=== PATIENT | female | born 1965 | race Caucasian/White ===

== ENCOUNTER → 2018-01-13 17:21 | Outpatient (CLI) | payer MEDICAID | END | disposition home or self-care (01) | LOC: D.MAMMO 09:15 | DX: Z12.31 Encounter for screening mammogram for malignant neoplasm of breast (principal) ==

== ENCOUNTER 2018-03-05 08:35 | Emergency (ER) | payer MEDICAID ==
[2018-03-05 10:08] LABS: BASOPHILS 0.1 % (0-2); EOSINOPHILS 0.3 % (0-7); HEMATOCRIT 43.7 % (36.0-48.0); HEMOGLOBIN 14.1 g/dL (12-16); IMMATURE GRANULOCYTES 0.3 % (0-5); LYMPHOCYTES 8.7 % (15-50); MCH 30.2 pg (26.0-34.0); MCHC 32.3 g/dL (31.0-37.0); MCV 93.6 fL (80.0-100.0); MEAN PLATELET VOLUME 10.8 fL (7.4-10.4); MONOCYTES 7.7 % (2-11); NEUTROPHILS 82.9 % (40-80); PLATELET COUNT 242 10x3/uL (130-400); RBC 4.67 10x6/uL (4.00-5.40); RDW 14.8 % (11.5-14.5); WBC 14.9 10x3/uL (4.8-10.8)
== END 2018-03-05 11:08 | disposition home or self-care (01) ==
LOC: D.ER 08:35
PROVIDERS: Emergency Medicine
DX: S29.9XXA Unspecified injury of thorax, initial encounter (principal); V43.52XA Car driver injured in collision with other type car in traffic accident, initial encounter; Y93.89 Activity, other specified; Y92.410 Unspecified street and highway as the place of occurrence of the external cause; S81.812A Laceration without foreign body, left lower leg, initial encounter; I10 Essential (primary) hypertension; F17.200 Nicotine dependence, unspecified, uncomplicated

== ENCOUNTER → 2018-03-30 16:54 | Outpatient (CLI) | payer MEDICAID | END | disposition home or self-care (01) | LOC: D.MAMMO 03-09 10:00 | DX: R92.8 Other abnormal and inconclusive findings on diagnostic imaging of breast (principal) ==

== ENCOUNTER → 2019-06-27 10:41 | Outpatient (CLI) | payer MEDICAID ==
[~2019-06-27 10:41] MED LIST: ASPIRIN81 MG PO; BUSPAR 15 MG TA15 MG PO; COZAAR100 MG PO; CYCLOBENZAPRINE5 MG PO; HYDRALAZINE HCL50 MG PO; HYDROCHLOROTHIA25 MG PO; NORVASC10 MG PO; OMEPRAZOLE20 M1 PO; OXYBUTYNIN CHLOR5 MG PO; SYNTHROID25 MCG PO; TOPROL XL100 MG PO
[2019-07-05 15:16] VITALS: BMI 41.0
== END | disposition home or self-care (01) ==
LOC: D.HCCARDIO 10:30
PROVIDERS: ATTEND Internal Medicine Cardiovascular Disease
DX: I25.10 Atherosclerotic heart disease of native coronary artery without angina pectoris (principal)

== ENCOUNTER 2019-07-04 13:10 | Inpatient (IN) | payer MEDICAID ==
[~2019-07-04] VITALS: Ht 162.6 cm; Wt 108.5 kg
--- NOTE | ~2019-07-04 | HEMODYNAMI ---
PATIENT:TITO MORENO MEDICAL RECORD: [id number] : 63 LOCATION:[facility] D.2114 ADMISSION DATE: 07/04/19 Generatedon:07/05/201910:08 Patient name: TITO MORENO Patient #: [id number] : 1965 Date of study: 07/05/2019 Page: Of Hemodynamic Procedure Report Patient Data Patient Demographics Procedure consent was obtained First Name: TITO Gender: Female Last Name: TIFFANIE : 1965 Patient #: [id number] Age: 53 year(s) Race: SSN: [id number] Additional ID: [id number] Contact details Address: [address] [place] [address] State: [place] City: [place] Zip code: [address] Admission Admission Data Admission Date: 07/04/2019 Admission Time: 18:33 Arrival Date: 07/04/2019 Arrival Time: 18:33 Admit Source: Emergency Insurance Payor: Private department health insurance Room #: D.2114 [facility] #: [id number] Weight (lbs.): 248 Weight (kg.): 112.49 Current Diagnosis Diagnosis Description NSTEMI Lab Results Lab Result Date: 07/05/2019 Lab Result Time: 0:00 Biochemistry Name Units Result Min Max BUN mg/dl 26 --(----)-* 7 18 Creatinine mg/dl 1.2 --(---*)-- 0.6 1.3 CBC Name Units Result Min Max Hemoglobin g/dl 11.5 *-(----)-- 13.5 17.5 Procedure Procedure Types Cath Procedure Diagnostic Procedure LHC LHC w/Coronaries Procedure Description Procedure Date Procedure Date: 07/05/2019 Procedure Start Time: 9:45 Procedure End Time: 10:06 Procedure Staff Name Function Asif Montana MD Performing Physician Iam Henderson RT Monitor Brooklyn Wagner RN Nurse Leela Mcmahon RT Scrub Procedure Data Cath Procedure Fluoroscopy Diagnostic fluoroscopy Total fluoroscopy Time: 4.1 time: 4.1 min min Diagnostic fluoroscopy Total fluoroscopy dose: dose: 1162 mGy 1162 mGy Contrast Material Contrast Material Type Amount (ml) Isovue 300 106 Entry Location Entry Primary Successful Side Size Upsize Upsize Entry Closure Fitzgerald ccessful Closure Location (Fr) 1 (Fr) 2 (Fr) Remarks Device Remarks Radial Right 5 Fr Mechanical artery Compression Estimated blood loss: 10 ml Diagnostic catheters Device Type Used For End Catheter Placement DIAGNOSTIC [place] 110cm 5 Procedure Fr catheter ([id number]) DIAGNOSTIC Pigtail 5Fr Procedure catheter ([id number]) Procedure Medications Medication Administration Route Dosage 0.9% NaCl I.V. 100 ml/hr Oxygen 4 l/min Lidocaine 2% added to field 20 Heparin Flush Bag added to field 2 bags (1000units/500ml NS) Radial Cocktail added to field 1 syringe (Verapamil 2mg/Nitro 400mcg/Heparin 1500units) Versed I.V. 2 mg Fentanyl I.V. 25 mcg Hemodynamics Rest HGB: 11.5 (g/dl) Heart Rate: 62 (bpm) Pressure Samples Time Site Value (mmHg) Purpose Heart Use Rate(bpm) 9:50 LV 110/10,9 Snapshot 43 9:50 LV 132/-1,21 EDP 60 9:51 AO 143/89(113) Pullback 58 9:51 LV 141/7,28 Pullback 58 Gradients Valve Time Site 1 Site 2 Mean SEP/DFP Peak To Heart Use (mmHg) (sec/min) Peak Rate (mmHg) (bpm) Aortic 9:51 LV AO 0 12 0 58 141/7,28 143/89(113) Calculations Valve P-P Mean Valve Index Valve Source Name Gradient Area Flow (cm2) Aortic 0 0 0 0 Snapshots Pre Cath Intra NCS Post Cath Vital Signs Time Heart Resp SPO2 etCO2 NIBP (mmHg) Rhythm Pain Sedation Rate (ipm) (%) (mmHg) Status Level (bpm) 9:24:12 62 34 93 15.7 Measuring NSR 0 (11) 10(A) , No pain 9:24:14 62 34 93 15 166/122(140) NSR 0 (11) 10(A) , No pain 9:29:13 61 38 97 21 Measuring NSR 0 (11) 10(A) , No pain 9:34:22 60 41 93 16.5 155/115(137) NSR 0 (11) 10(A) , No pain 9:39:01 59 35 93 19.5 173/91(153) SB 0 (11) 9(A) , No pain 9:44:00 60 29 92 12 Measuring NSR 0 (11) 9(A) , No pain 9:45:13 61 28 94 11.2 162/99(136) NSR 0 (11) 9(A) , No pain 9:49:54 59 36 92 13.5 162/119(143) SB 0 (11) 9(A) , No pain 9:54:31 54 30 94 14.2 151/92(126) SB 0 (11) 9(A) , No pain 9:59:03 55 27 93 15 143/104(129) SB 0 (11) 9(A) , No pain 10:03:33 55 29 94 26.2 153/104(135) SB 0 (11) 10(A) , No pain Medications Time Medication Route Dose Verified Delivered Reason Notes Eff ectiveness by by 9:23:48 0.9% NaCl I.V. 100 Asif Brooklyn used for ml/hr Rubén Wagner pt sitter 9:24:00 Oxygen Simple 4 l/min Asif Brooklyn used for Mask Rubén Wagner pt sitter 9:24:06 Lidocaine 2% added 20ml Asif Asif for local to vial Rubén Montana MD anesthetic field 9:24:11 Heparin Flush added 2 bags Asif Asif used for Bag to Rubén Montana MD procedure (1000units/500ml field NS) 9:24:19 Radial Cocktail added 1 Asif Asif used for (Verapamil to syringe Rubén Montana MD procedure 2mg/Nitro field 400mcg/Heparin 1500units) 9:36:18 Versed I.V. 2 mg Asif Brooklyn for Rubén Wagner sedation RN 9:36:27 Fentanyl I.V. 25 mcg Asif Brooklyn for Rubén Wagner sedation iron worker apprentice Log Time Note 8:58:33 Diagnostic Cath Status : Elective 8:58:51 Iam Henderson RT(R) (CV) sent for patient. Start room use. 8:58:54 Time tracking: Regular hours (M-F 7:00 - 5:00) 8:59:00 Plan of Care:Hemodynamics will remain stable., Cardiac rhythm will remain stable., Comfort level will be maintained., Respiratory function will remain adequate., Patient/ family verbilizes understanding of procedure., Procedure tolerated without complication., Recovers from procedure without complications.. 8:59:20 3a) 45-59 Moderately reduced kidney function. 8:59:46 Maximum allowable contrast dose (3.7 X eGFR X 0.75)138.75 ml. 9:08:04 ACC Patient presents with Unstable Angina CCS Anginal Class 2--Slight limitation of ordinary activity. 9:08:12 Procedure Status Urgent Heart Cath (IP). 9:08:33 Admit Source: Emergency department 9:09:56 Arrival Date: 07/04/2019 6:33:00 PM 9:10:16 Insurance Payor : Private health insurance 9:14:31 Patient received from Med II to CCL 1 Alert and oriented. Tansferred to table in Supine position. 9:19:27 Lab Result : BUN 26 mg/dl 9:19:27 Lab Result : Hemoglobin 11.5 g/dl 9:19:27 Lab Result : Creatinine 1.2 mg/dl 9:20:47 ----Pre-sedation anethsthesia assessment.---- 9:20:50 Previous problem with sedation/anesthesia? No ? 9:20:51 Sleep apnea? Yes 9:20:52 Deviated septum? Yes 9:20:53 Opens mouth fully? Yes 9:20:55 Sticks out tongue? Yes 9:21:46 Airway obstruction? No ? 9:21:50 Dentures? No ? 9:21:54 Modified Dimas's test Ulnar < 7 seconds 9:22:02 Patient pain scale 0/10 ?. 9:22:10 IV patent on arrival in left hand with 0.9% NaCl at KVO. 9:22:18 Signed procedure consent form obtained from patient. 9:22:20 Warm blankets applied, and jessica hugger turned on for patient comfort. 9:22:21 Correct patient and procedure confirmed by team. 9:22:21 ECG and BP/O2 sat monitors applied to patient. 9:22:22 Vital chart was started 9:23:23 Baseline sample Acquired. 9:23:29 Rhythm: sinus rhythm 9:23:30 Full Disclosure recording started 9:23:38 H&P Date Dictated: 07/04/2019 Within 30 days and on chart.. 9:23:43 Pre-procedure instructions explained to patient. 9:23:43 Pre-op teaching completed and patient verbalized understanding. 9:23:48 0.9% NaCl 100 ml/hr I.V. was administered by Brooklyn Wagner RN; used for procedure; 9:23:57 Family unavailable. 9:24:00 Oxygen 4 l/min Simple Mask was administered by Brooklyn Wagner RN; used for procedure; 9:24:00 Patient NPO since Midnight. 9:24:06 Lidocaine 2% 20ml vial added to field was administered by Asif Montana MD; for local anesthetic; 9:24:11 Heparin Flush Bag (1000units/500ml NS) 2 bags added to field was administered by Asif Montana MD; used for procedure; 9:24:19 Radial Cocktail (Verapamil 2mg/Nitro 400mcg/Heparin 1500units) 1 syringe added to field was administered by Asif Montana MD; used for procedure; 9:24:51 ALLERGY: ACETAMENOPHEN, BENADRYL, LATEX, IODINE 9:29:07 Baseline sample Acquired. 9:29:32 Patient diabetic? No. 9:29:44 Lab results completed and on chart. 9:29:49 Right Radial & Right Groin area was prepped with chlora-prep and draped in sterile fashion 9:29:50 Alarms reviewed by R. N. 9:29:51 Sharps counted by scrub and verified by R.N. 9:34:09 Pt arrives to CL w/ SOB and dyspnea on exertion. Pt placed on 4L O2 via simple mask. Still complains of SOB. MD notified w/ no new orders. given. All other VSS, will continue to monitor. 9:34:18 Use device set Radial Dx or PCI 9:34:20 ACIST Syringe (65750) opened to sterile field. 9:34:21 Medline Cath Pack ([id number]) opened to sterile field. 9:34:21 Bag Decanter (2002) opened to sterile field. 9:34:22 ACIST Hand Control (65097) opened to sterile field. 9:34:23 ACIST Manifold (70046) opened to sterile field. 9:34:23 Tegaderm 4 x 4 (1626W) opened to sterile field. 9:34:24 MBrace Wrist Support ([id number]) opened to sterile field. 9:34:25 NEEDLE Cook 21G 4cm Radial (C80678) opened to sterile field. 9:34:27 EMERALD Guide Wire (502-691) opened to sterile field. 9:34:29 SHEATH 6FR RAIN (6990104) opened to sterile field. 9:35:43 Physician arrived 9::44 --------ALL STOP TIME OUT------ 9:35:44 Final Timeout: patient, procedure, and site verified with staff and physician. All members of the team are in agreement. 9:35:48 Right Radial & Right Groin site verified by team. 9:35:52 Fire Safety Assessment: A--An alcohol-based skin anteseptic being used preoperatively., C--Open oxygen or nitrous oxide is being used., D--An ESU, laser, or fiber-optic light is being used. 9:36:01 Physical assessment completed. ASA score P 2 - A patient with mild systemic disease as per Asif Montana MD. 9:36:07 Sedation plan: IV Moderate Sedation Medication:Versed, Fentanyl 9:36:18 Versed 2 mg I.V. was administered by Brooklyn Wagner RN; for sedation; 9:36:27 Fentanyl 25 mcg I.V. was administered by Brooklyn Wagner RN; for sedation; 9:37:10 Maximum allowable contrast dose (3.7 X eGFR X 0.75)138.75 ml. 9:40:38 Zero performed for pressure channel P1 9:40:48 Zero performed for pressure channel P1 9:40:54 Zero performed for pressure channel P1 9:45:02 Procedure started. 9:45:08 Local anesthetic to right radial artery with Lidocaine 2% by Asif Montana MD.INITIAL ACCESS ONLY 9:48:44 A 5 Fr sheath was inserted into the Right Radial artery 9:50:08 A DIAGNOSTIC [place] 110cm 5 Fr catheter (615016) was advanced over the wire and used for Procedure. 9:50:57 LV hemodynamics recorded. 9:50:59 LV gram done using BROOKS 9:51:17 EF : 25 % 9:52:08 LCA angiography performed. 9:54:43 RCA angiography performed. 9:55:24 Catheter removed. 9:55:40 A DIAGNOSTIC Pigtail 5Fr catheter ([id number]) was advanced over the wire and used for Procedure. 9:58:37 LV gram done using BROOKS 9:58:48 Injector settings: Ml/sec: 10, Volume: 20, 9:59:46 Catheter removed. 10:02:09 TR BAND Standard ([id number]) opened to sterile field. 10:02:24 Sheath removed intact; hemostasis achieved with Mechanical Compression to the Right Radial artery. 10:02:29 Procedure ended.(Physican Out) 10:02:44 Fluoroscopy time 04.10 minutes. 10:02:55 Fluoroscopy dose: 1162 mGy 10:02:55 Flurop Dose total: 1162 10:03:21 Dose Area Product 79003 mGy/cm. 10:03:30 Contrast amount:Isovue 300 106ml. 10:03:34 Maximum allowable dose exceeded? No. 10:03:35 Sharps counted by scrub and verified by R.N. 10:03:42 Procedure and supply charges have been captured, reviewed, submitted and are correct. 10:05:48 TR band inflated with 10cc of air. 10:05:51 Insertion/operative site no bleeding no hematoma. 10:06:06 Post right radial artery:stable 10:06:12 Post-procedure physical assessment completed. ASA score P 2 - A patient with mild systemic disease as per Asif Montana MD. 10:06:26 Post procedure rhythm: sinus bradycardia 10:06:33 Estimated blood loss: 10 ml 10:06:36 Patient needs reinforcement of post procedure teaching. 10:06:43 Vital chart was stopped 10:06:44 See physician's report for complete and final results. 10:06:46 Report given to Med II. 10:06:53 Patient transfered to Med II with Bed. 10:06:56 Procedure ended. 10:06:56 Full Disclosure recording stopped 10:07:06 End room use (Document Last) 10:07:28 Patient Weight : 248 lbs 10:07:40 Current Diagnosis : NSTEMI Device Usage Item Name Manufacture Quantity Catalog Hospital Part Current Minima l Lot# / Number Charge Number Stock Stock Serial# Code ACIST Acist 1 85987 189919 497174 015628 20 PolyActiva75074) Systems Inc Medline Medline 1 [id number] 342647 63489 978928 5 Cath Pack ([id number]) Bag Microtek 1 2001S 049214 46173 155915 5 Decanter Medical Inc. (2001S) ACIST Hand Acist 1 98112 901433 652665 297936 5 Control Medical (67603) Systems Inc ACIST Acist 1 44230 338282 505850 770898 5 Manifold Medical (23242) Systems Inc Tegaderm 4 3M 1 1626W 160840 358226 428980 5 x 4 (1626W) MBrace Advanced 1 140-0250-00 358240 00607 582573 5 Wrist Vascular Support Dynamics ([id number]) NEEDLE Cook Cook Medical 1 O71592 600453 673217 028556 5 21G 4cm Radial (O07812) EMERALD Cardinal 1 433-521 158955 712043 804021 5 Guide Wire Health (022-518) SHEATH 6FR Cardinal 1 6045845 453071 8290808 045341 5 [facility] (8845809) DIAGNOSTIC Terumo 1 405013 020541 919238 663016 5 [place] 110cm 5 Fr catheter (936800) DIAGNOSTIC Cardinal 1 [id number] 126502 449404 950557 5 Pigtail 5Fr Health catheter (914756T) TR BAND Terumo 1 [id number] 483398 819678 658657 40 Standard ([id number]) Signature Audit [place] Stage Time Signature Unsigned Intra-Procedure 07/05/2019 Iam Henderson 10:08:15 AM RT(R) (CV) Signatures Performing Physician : Signature : Asif Montana MD Date : Time : Monitor : Iam Henderson RT Signature : Date : Time : Nurse : Brooklyn Wagner RN Signature : Date : Time : [address] [place] [address]
[2019-07-04] MEDS ORDERED: SYNTHROID25 MCG PO (13:16)
[2019-07-04] MEDS ORDERED: OMEPRAZOLE20 M1 PO (13:17)
[2019-07-04] MEDS ORDERED: ASPIRIN81 MG PO (13:17)
[2019-07-04] MEDS ORDERED: TOPROL XL100 MG PO (13:17)
[2019-07-04] MEDS ORDERED: HYDROCHLOROTHIA25 MG PO (13:18)
[2019-07-04 13:34] LABS: BASOPHILS 0.3 % (0-2); EOSINOPHILS 0.1 % (0-7); HEMATOCRIT 35.8 % (36.0-48.0); HEMOGLOBIN 11.5 g/dL (12-16); IMMATURE GRANULOCYTES 0.1 % (0-5); LYMPHOCYTES 29.1 % (15-50); MCH 30.1 pg (26.0-34.0); MCHC 32.1 g/dL (31.0-37.0); MCV 93.7 fL (80.0-100.0); MEAN PLATELET VOLUME 10.4 fL (7.4-10.4); MONOCYTES 7.4 % (2-11); PLATELET COUNT 263 10x3/uL (130-400); RBC 3.82 10x6/uL (4.00-5.40); WBC 7.3 10x3/uL (4.8-10.8)
[2019-07-04 13:38] VITALS: BP 128/92
[2019-07-04 13:50] LABS: ALBUMIN 3.1 g/dL (3.4-5.0); ALKALINE PHOSPHATASE 79 U/L (46-116); ALT (SGPT) 448 U/L (10-68); BILIRUBIN - TOTAL 2.09 mg/dL (0.2-1.3); CALC OSMOLALITY 287 mosm/kg (275-300); CALCIUM 8.8 mg/dL (8.5-10.1); CARBON DIOXIDE 23.7 mmol/L (21.0-32.0); CHLORIDE - SERUM 107 mmol/L (98-107); CREATININE - SERUM 1.2 mg/dL (0.6-1.3); GLUCOSE 105 mg/dL (74-106); POTASSIUM - SERUM 3.9 mmol/L (3.5-5.1); PROTEIN - SERUM 7.5 g/dL (6.4-8.2); SODIUM 142 mmol/L (136-145); UREA NITROGEN 26 mg/dL (7-18); eGFR NON AFRICAN AMERICAN 50 mL/min (90-120)
[2019-07-04 14:01] VITALS: BP 193/91
[2019-07-04 14:06] LABS: CKMB 2.1 U/L (0.0-3.6); CREATINE KINASE 99 UL (21-215); PRO BNP 24233 pg/mL (0-125)
[2019-07-04 14:08] LABS: TROPONIN-I 0.155 ng/mL (0.000-0.060)
[2019-07-04 14:18] VITALS: BP 173/122; BP 182/114
[2019-07-04 15:01] VITALS: BP 137/107
[2019-07-04 16:39] LABS: THYROID STIMULATING HORMONE 4.78 uIU/mL (0.36-3.74)
[2019-07-04 20:00] VITALS: BP 149/48
[2019-07-04] MEDS ORDERED: BUSPAR 15 MG TA15 MG PO (20:12)
[2019-07-04] MEDS ORDERED: OXYBUTYNIN CHLOR5 MG PO (20:12)
[2019-07-04] MEDS ORDERED: NORVASC10 MG PO (20:13)
[2019-07-04] MEDS ORDERED: COZAAR100 MG PO (20:13)
[2019-07-04] MEDS ORDERED: CYCLOBENZAPRINE5 MG PO ×2 (20:15→20:16)
[2019-07-04] MEDS ORDERED: HYDRALAZINE HCL50 MG PO (20:19)
[2019-07-04 21:08] LABS: CKMB 1.9 U/L (0.0-3.6); CREATINE KINASE 98 UL (21-215)
[2019-07-04 21:09] LABS: TROPONIN-I 0.138 ng/mL (0.000-0.060)
[2019-07-04 23:40] VITALS: BP 149/48; BMI 42.6
--- NOTE | 2019-07-04 23:47 | NUR ---
RECIEVED REPORT FROM DAYNA RN IN ER AT 1900. ARRIVED TO FLOOR AT 192 IN W/C. ALERT AND ORIENTED X4. UP AD JOSETET TO B/R. IV TO LEFT HAND SL. DENIES ANY NEEDS AT THIS TIME.
[2019-07-05 00:10] VITALS: BP 151/87
[2019-07-05 01:52] LABS: CKMB 1.8 U/L (0.0-3.6); CREATINE KINASE 95 UL (21-215)
[2019-07-05 01:53] LABS: TROPONIN-I 0.117 ng/mL (0.000-0.060)
[2019-07-05 04:00] VITALS: BP 158/88
[2019-07-05 06:57] LABS: CHOL - HDL RATIO 7.2 ratio (2.3-4.1); CHOLESTEROL, TOTAL 122 mg/dL (0-200); CKMB 1.8 U/L (0.0-3.6); CREATINE KINASE 92 UL (21-215); HDL CHOLESTEROL 17 mg/dL (32-96); LDL CHOLESTEROL 86 mg/dL (0-100); LDL-HDL RATIO 5.1 ratio (1.5-3.5); TRIGLYCERIDE 96 mg/dL (30-200)
[2019-07-05 06:58] LABS: TROPONIN-I 0.109 ng/mL (0.000-0.060)
--- NOTE | 2019-07-05 07:15 | NUR ---
RECEIVED PT IN BED AAOX4 BECOMES VERY SOB WHEN TALKING O2 ON 2.5 LPM NC WILL CONTINUE TO MONITOR
[2019-07-05 07:55] LABS: BASOPHILS 0 % (0-2); EOSINOPHILS 0 % (0-7); HEMATOCRIT 34.9 % (36.0-48.0); IMMATURE GRANULOCYTES 0.5 % (0-5); LYMPHOCYTES 13.1 % (15-50); MCH 29.6 pg (26.0-34.0); MCHC 31.5 g/dL (31.0-37.0); MCV 93.8 fL (80.0-100.0); MONOCYTES 2.1 % (2-11); NEUTROPHILS 84.3 % (40-80); PLATELET COUNT 285 10x3/uL (130-400); RBC 3.72 10x6/uL (4.00-5.40); RDW 16.9 % (11.5-14.5); WBC 5.8 10x3/uL (4.8-10.8)
[2019-07-05 07:59] LABS: ANION GAP 19.2 mmol/L (8-16); CALCIUM 8.6 mg/dL (8.5-10.1); CARBON DIOXIDE 21.6 mmol/L (21.0-32.0); CREATININE - SERUM 1.3 mg/dL (0.6-1.3); POTASSIUM - SERUM 3.8 mmol/L (3.5-5.1)
--- NOTE | 2019-07-05 09:20 | NUR ---
TO COMMUNICATION TECHNICIAN VIA BED
[2019-07-05 09:21] VITALS: BP 148/98
--- NOTE | 2019-07-05 10:30 | NUR ---
RECEIVED PT BACK FROM [employer] VSS BRACE/band intact to rt wrist NO SIGNS OF BLEEDING PPPX4 RESP UNLABORED WILL CONT TO MONITOR
[2019-07-05 10:48] LABS: ALBUMIN 3.1 g/dL (3.4-5.0); BILIRUBIN - DIRECT 0.64 mg/dL (0.00-0.30); BILIRUBIN - INDIRECT 0.68 mg/dL (0.00-1.00); BILIRUBIN - TOTAL 1.32 mg/dL (0.2-1.3); PROTEIN - SERUM 7.6 g/dL (6.4-8.2)
[2019-07-05 13:19] VITALS: BMI 41.0
[2019-07-05 13:54] VITALS: BP 115/64
[2019-07-05 15:16] VITALS: Ht 162.6 cm; Wt 108.5 kg
[2019-07-05 18:36] VITALS: BP 150/84
[2019-07-05 20:00] VITALS: BP 126/58
[2019-07-06] VITALS: BP 147/86
[2019-07-06 04:00] VITALS: BP 126/75
[2019-07-06 05:32] LABS: BASOPHILS 0.1 % (0-2); EOSINOPHILS 0 % (0-7); HEMATOCRIT 32.5 % (36.0-48.0); HEMOGLOBIN 9.9 g/dL (12-16); IMMATURE GRANULOCYTES 0.3 % (0-5); LYMPHOCYTES 14.8 % (15-50); MCH 29.4 pg (26.0-34.0); MCHC 30.5 g/dL (31.0-37.0); MEAN PLATELET VOLUME 10.3 fL (7.4-10.4); MONOCYTES 7.4 % (2-11); NEUTROPHILS 77.4 % (40-80); PLATELET COUNT 256 10x3/uL (130-400); RBC 3.37 10x6/uL (4.00-5.40); RDW 17.3 % (11.5-14.5)
[2019-07-06 05:41] LABS: MCV 96.4 fL (80.0-100.0); WBC 12.4 10x3/uL (4.8-10.8)
[2019-07-06 05:55] LABS: ALBUMIN 2.7 g/dL (3.4-5.0); BILIRUBIN - TOTAL 0.61 mg/dL (0.2-1.3); CALCIUM 8.5 mg/dL (8.5-10.1); CREATININE - SERUM 1.3 mg/dL (0.6-1.3); MAGNESIUM - SERUM 2.5 mg/dL (1.8-2.4); POTASSIUM - SERUM 3.6 mmol/L (3.5-5.1); PROTEIN - SERUM 6.9 g/dL (6.4-8.2)
[2019-07-06 06:01] LABS: ANION GAP 9.1 mmol/L (8-16); CARBON DIOXIDE 30.5 mmol/L (21.0-32.0)
[2019-07-06 08:41] VITALS: BP 135/78
--- NOTE | 2019-07-06 15:25 | NUR ---
REPORT CALL TO SCIENTOLOGIST IN LR. DC PLANS GIVEN. UNDERSTANDING VOICED. EMS NOTIFIED FOR TRANSPORTATION. WILL CONT. PLAN OF CARE.
--- NOTE | 2019-07-06 17:04 | NUR ---
TELEMETRY DCD. LEAVING HOSP WITH EMS BY STRETCHER.
--- NOTE | 2019-07-07 09:42 | MORECARE ---
CASE MANAGEMENT DISCHARGE SUMMARY PATIENT: TITO MORENO UNIT: [id number] ADM DATE: 07/06/19 AGE: 53 : 63 SEX: F ROOM/BED: D.7882 AUTHOR: LISA RUIZ PHYSICIAN: REFERRING PHYSICIAN: SINTIA DONNELLY DO DATE OF SERVICE: 07/07/19 Discharge Plan Patient Name: TITO MORENO Facility: [facility]:[place] : 1965 Planned Disposition: Acute Care Hospital Anticipated Discharge Date: 07/06/19 Discharge Date: 07/06/2019 Expected LOS: 1 Initial Reviewer: [email or web address] Initial Review Date: 07/07/2019 Generated: 07/07/19 10:42 am Comments DCP- Discharge Planning Updated by [email or web address]: Debbie Hernandez on 07/05/19 2:[address] RECEIVED CASEMANAGEMENT CONSULT TO TRANSFER THE PATIENT ON 07/[address] [facility] IN TO SERVICE OF DR RU PETIT. I WAS UNAWARE OF THE POSSIBLITY OF TRANSFER UNTIL JUST THIS MOMENT. PER DOCUMENTATION, THE REASON FOR TRANSFER IS: "Reasonable target vessels for revascularization, but fixed defect would leave her at high risk for post cardiotomy failure." @3936, CALL PLACED TO CHEMICAL LABORATORY ASSISTANT SHON STAPLES AND MESSAGE LEFT TO GET ADMIN AUTH. Patient Name: TITO MORENO Page 28544 at 0942 All edits/amendments must be made on the electronic document DICTATION DATE: 07/07/19941 CAMP HOUSEKEEPER: DM 07/07/19941 RPT#: [id number] DC DATE:07/06/19 STATUS: DIS IN [facility] [address] [place] [address] END OF REPORT
== END 2019-07-06 17:05 | disposition short-term general hospital (02) | DRG 280 ==
LOC: D.ER 13:10 → D.M2 18:33 → OBSVTIME 18:43 → D.M2 07-06 09:14
PROVIDERS: Emergency Medicine; Family Medicine; Internal Medicine Cardiovascular Disease; ADMIT Family Medicine; ATTEND Family Medicine
PROC: B2151ZZ Fluoroscopy of Left Heart using Low Osmolar Contrast (ICD-10-PCS; 2019-07-05)
PROC: 4A023N7 Measurement of Cardiac Sampling and Pressure, Left Heart, Percutaneous Approach (ICD-10-PCS; 2019-07-05)
PROC: B2111ZZ Fluoroscopy of Multiple Coronary Arteries using Low Osmolar Contrast (ICD-10-PCS; principal; 2019-07-05 10:10)
DX: I21.4 Non-ST elevation (NSTEMI) myocardial infarction (principal); I50.21 Acute systolic (congestive) heart failure; Z68.41 Body mass index [BMI] 40.0-44.9, adult; J44.9 Chronic obstructive pulmonary disease, unspecified; E66.01 Morbid (severe) obesity due to excess calories; I25.5 Ischemic cardiomyopathy; E78.5 Hyperlipidemia, unspecified; I25.110 Atherosclerotic heart disease of native coronary artery with unstable angina pectoris; I11.0 Hypertensive heart disease with heart failure; Z87.891 Personal history of nicotine dependence

== ENCOUNTER → 2021-01-10 09:37 | Outpatient (CLI) | payer OTHER ==
[2019-07-05 15:16] VITALS: BMI 41.0
--- NOTE | 2021-01-14 08:50 | EC ---
PATIENT:TITO MORENO DATE OF SERVICE: 01/10/21 SEX: F MEDICAL RECORD: [id number] DATE OF : 63 LOCATION:D.ECH AGE OF PATIENT: 55 ADMISSION DATE: 01/10/21 REFERRING PHYSICIAN: INTERPRETING PHYSICIAN: SHAVON MOORE MD ECHOCARDIOGRAM REPORT ECHO CHARGES 4 ECHO COMPLETE Date: 01/10/21 CLINICAL DIAGNOSIS: CHF ECHOCARDIOGRAPHIC MEASUREMENTS (adult normal given) AC root (d.<3.7cm) 2.4 cm LV Septum d (<1.2 cm> 1.0 cm Valve Excursion 1.4 cm LV Septum (systole) 1.2 cm Left Atria (s.<4.0cm> 4.6 cm LVPW d(<1.2cm) 0.9 cm RV (d.<2.3cm) 3.2 cm LVPW (sytole) 1.2 cm LV diastole(<5.6CM) 6.9 cm MV E-F(>70mm/sec) cm LV systole 5.6 cm LVOT Diameter 1.8 cm MV exc.(>10mm) cm Est.ejection fraction (50-75%) % DOPPLER: LVIT cm/sec A 68 cm/sec E 165 cm/sec LA cm/sec RVSP 17 mmHg LVOT 128 cm/sec AOP1/2T m/s Asc. Ao 116 cm/sec RVOT 58 cm/sec RA cm/sec PA 120 cm/sec AV Gradient Peak 5.4 mmHg AV Mean 3.2 mmHg AV Area 2.4 cm MV Gradient Peak 13.0 mmHg MV Mean 4.8 mmHg MV Area cm COMMENTS: Medical Administrator: Marycruz JOSEPH Natural Resource Specialist: 3 Dr. Ann TAPE# Pericardial Effusion N DATE OF SERVICE: Adequate 2D, color-flow imaging, spectral Doppler, and M-Mode FINDINGS: No LVH. LV internal dimension is normal. Wall motion is normal. EF is greater than or equal to 55%. Aortic valve is tricuspid. No evidence of stenosis by Doppler interrogation. Left atrium is dilated at 4.6 cm. Mitral valve shows no prolapse. Trace MR. Right side is grossly normal. Mild TR. TRANSINT:[id number] Voice Confirmation ID: [id number] DOCUMENT ID: [id number] ECHOCARDIOGRAM REPORT [id number] TITO MORENO SHAVON MOORE MD at 0850 CC: [id number] DICTATION DATE: 01/10/21 1328 ANALYTICS SENIOR MANAGER: 01/10/21 1611 DEP CLI 01/10/21 [place] [id number] [place] [address]
== END | disposition home or self-care (01) ==
LOC: D.ECHO 12-28 10:35
DX: I50.33 Acute on chronic diastolic (congestive) heart failure (principal)